=== PATIENT | male | born 1990 | race Caucasian/White ===

== ENCOUNTER 2023-09-10 18:34 | Emergency (ER) | payer MEDICAID ==
[~2023-09-10] VITALS: Ht 165.1 cm; Wt 54.4 kg
[2023-09-10 18:39] VITALS: BP 122/87; PULSE 104; RESP 20; TEMP 97.9; O2SAT 100
[2023-09-10 19:22] LABS: BASOPHILS # (AUTO) 0.1 K/uL (0.00-0.22); BASOPHILS % (AUTO) 0.9 % (0.0-2.0); EOSINOPHILS # (AUTO) 0.1 K/uL (0-0.4); EOSINOPHILS % (AUTO) 1.4 % (0.0-4.0); HEMATOCRIT 34.5 % (36-52); HEMOGLOBIN 11.9 g/dL (12.0-18.0); LYMPHOCYTES # (AUTO) 2.6 K/uL (2.0-11.5); LYMPHOCYTES % (AUTO) 42.6 % (20.5-51.1); MEAN CORPUSCULAR HEMOGLOBIN 35 pg (27-31); MEAN CORPUSCULAR HGB CONC 35 g/dL (33-37); MEAN CORPUSCULAR VOLUME 101.9 fL (80-94); MONOCYTES # (AUTO) 0.8 K/uL (0.8-1.0); MONOCYTES % (AUTO) 12.7 % (1.7-9.3); NEUTROPHILS # (AUTO) 2.6 K/uL (1.8-7.7); NEUTROPHILS % (AUTO) 42.4 % (42.2-75.2); PLATELET COUNT (AUTO) 257 K/uL (140-450); RED BLOOD CELL COUNT(AUTO) 3.39 MIL/uL (4.20-6.10)
[2023-09-10 19:43] LABS: CALCIUM 8.7 mg/dL (8.5-10.1); CARBON DIOXIDE 24.6 mmol/L (21-32); CREATININE 0.8 mg/dL (0.6-1.3); POTASSIUM 3.6 mmol/L (3.5-5.1)
[2023-09-10] MEDS: NACL 0.9% 1,000 ML IV ONE (19:56)
[2023-09-10] MEDS ORDERED: ONDA8TAB87 PO (21:09)
[2023-09-10] MEDS ORDERED: IBUP-2213 PO (21:09)
== END 2023-09-10 21:12 | disposition home or self-care (01) ==
LOC: MED 18:34
DX: R55 Syncope and collapse (principal); R06.02 Shortness of breath; R50.9 Fever, unspecified; R11.2 Nausea with vomiting, unspecified; R07.9 Chest pain, unspecified; R03.0 Elevated blood-pressure reading, without diagnosis of hypertension
CPT/HCPCS: 36415; 80048; 85025; 93005; 96360; 99284

== ENCOUNTER 2023-09-21 13:55 | Emergency (ER) | payer MEDICAID ==
[~2023-09-21] VITALS: Ht 165.1 cm; Wt 51.4 kg
[~2023-09-21 13:55] MED LIST: IBUP-2213 PO; ONDA8TAB87 PO
[2023-09-21 14:20] VITALS: BP 131/99; PULSE 135; RESP 20; TEMP 97.7; O2SAT 97
== END 2023-09-21 14:36 | disposition left against medical advice (07) ==
LOC: MED 13:55
DX: R53.1 Weakness (principal); R11.2 Nausea with vomiting, unspecified; Z53.21 Procedure and treatment not carried out due to patient leaving prior to being seen by health care provider